=== PATIENT | male | born 1975 | race Caucasian/White ===

== ENCOUNTER 2023-09-30 11:48 | Day surgery (SDC) | payer OTHER ==
[2023-09-29 09:08] VITALS: BMI 24.0
[2023-09-30] MEDS ORDERED: PROPOFOL 20 ML ONE ×2 (13:52)
[2023-09-30] MEDS ORDERED: Lidocaine 1% PF 5 ML VIAL ONE (13:52)
[2023-09-30] MEDS ORDERED: Glycopyrrolate 0.2 MG/ML 5 ML SYRINGE ONE ×2 (13:56→14:55)
[2023-09-30] MEDS ORDERED: NEOSTIGMINE 3 MG/3 ML SYR 3 MG/3 ML SYRINGE ONE (13:56)
[2023-09-30] MEDS ORDERED: CEFAZOLIN 2 GM VIAL ONE (14:10)
[2023-09-30] MEDS ORDERED: Sodium Chloride 0.9% 100 ML ONE (14:10)
[2023-09-30] MEDS ORDERED: EPINEPHrine 1 MG/ML VIAL ONE (14:23)
[2023-09-30] MEDS ORDERED: Bupivacaine 0.25% HCL 30 ML VIAL ONE (14:23)
[2023-09-30] MEDS ORDERED: fentaNYL PF 100 MCG/2 ML SYRINGE ONE (14:38)
[2023-09-30] MEDS ORDERED: Ondansetron PF 4 MG/2 ML Vial ONE (14:46)
[2023-09-30] MEDS ORDERED: Dexamethasone 4 mg/ml Vial ONE (14:46)
[2023-09-30] MEDS ORDERED: ePHEDrine Sulfate 50 MG/10 ML VIAL ONE (14:53)
[2023-09-30] MEDS ORDERED: Ketorolac Tromethamine 30 MG (1 mL) VIAL ONE (15:09)
== END 2023-09-30 17:00 | disposition home or self-care (01) ==
LOC: SDC 11:48
PROVIDERS: ATTEND Surgery
PROC: 0WBF0ZZ Excision of Abdominal Wall, Open Approach (ICD-10-PCS; principal; 2023-09-30)
DX: L08.82 Omphalitis not of newborn (principal); L72.0 Epidermal cyst; Z91.040 Latex allergy status
CPT/HCPCS: 88305; J0171; J0665; J1100; J1885; J2405; J2704; J3490